=== PATIENT | female | born 1990 | race Caucasian/White ===

== ENCOUNTER 2025-01-26 09:14 | Emergency (ER) | payer OTHER, SELFPAY ==
[2025-01-26] VITALS (8 sets, daily range): BP systolic 104–127; BP diastolic 67–71; PULSE 72–98; RESP 14–22; TEMP 36.8; O2SAT 99–100; BMI 30.2
--- NOTE | 2025-01-26 09:32 | EKG_ITS ---
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
--- NOTE | 2025-01-26 09:32 | DI.RAD.S_ITS ---
PROCEDURE: XR CHEST 1V INDICATIONS: chest pain TECHNIQUE: One view of the chest was acquired. COMPARISON: None. FINDINGS: Surgical changes and devices: None. Lungs and pleura: Lungs are clear. No pleural effusions or pneumothorax. Mediastinum: Mediastinal contours appear normal. Heart size is normal. Bones and chest wall: No suspicious bony lesions. Overlying soft tissues appear unremarkable. IMPRESSION: No acute cardiopulmonary pathology. Dictated by: Tho Worley M.D. on 01/26/2025 at 10:03 Approved by: Tho Worley M.D. on 01/26/2025 at 10:04
[2025-01-26 09:47] LABS: Add Manual Diff / Slide Review NO; Basophils Absolute Auto 100 /uL (0-100); Basophils Percent Auto 0.6 % (0-2); Eosinophils Absolute Auto 100 /uL (0-450); Eosinophils Percent Auto 0.7 % (2-4); Hematocrit 40.3 % (36-46); Hemoglobin 13.8 g/dL (12.0-16.0); Lymphocytes Absolute Auto 3200 /uL (1100-4500); Mean Corpuscular HGB Conc 34.2 % (30-36); Mean Corpuscular Hemoglobin 30.5 PG (26-34); Mean Corpuscular Volume 89.1 fL (80-100); Monocytes Absolute Auto 700 /uL (0-900); Monocytes Percent Auto 7.3 % (3-14); Neutrophils Absolute Auto 5900 /uL (1500-7000); Neutrophils Percent Auto 59.4 % (50-75); Platelet Count 259 X10^3/uL (150-400); Red Blood Cell Count 4.52 X10^6/uL (4.0-5.2); Red Cell Distribution Width 12.6 % (11.6-14.8)
--- NOTE | 2025-01-26 09:51 | ED.CHESTPAIN ---
HPI - Chest Pain General Chief Complaint: Chest Pain Stated Complaint: Chest pain , Dizzy was seen at [facility] t-14 days Time Seen by Provider: 01/26/25 09:50 Source: patient and RN notes reviewed Limitations: no limitations History of Present Illness HPI narrative: Patient is a 34-year-old female history of hyperlipidemia family history of such presenting today with ongoing chest pain. She reports over last couple of weeks she has had some chest tightness that is constant. She feels a little dizzy and lightheaded. She has been fasting for Ramadan for the last few weeks she was eating at night but feels dizzy and lightheaded at times. She has not passed out. Last night she was quite upset her son was going to live with his father. She was quite tearful she vomited up quarter-size or half-dollar size amounts of bright red blood. It only happened twice. This morning she came in to be checked out for the ongoing chest discomfort and dizziness. She has no known clotting disorder no family clotting disorder, not on hormones. Related Data Allergies Allergy/AdvReac Type Severity Reaction Status Date / Time No Known Drug Allergies Allergy Verified 01/26/25 09:33 Patient History Social History Smoking Status: Former smoker Smoking Status: Former smoker tobacco type: cigarettes Exam Initial Vital Signs Initial Vital Signs: Vital Signs Temperature 98.3 F 01/26/25 09:20 Pulse Rate 82 01/26/25 09:20 Respiratory Rate 14 01/26/25 09:20 Blood Pressure 127/71 01/26/25 09:20 Pulse Oximetry 99 01/26/25 09:20 Oxygen Delivery Method Room Air 01/26/25 09:20 GENERAL: Alert pleasant well-appearing 34 year female and in [no acute] distress. HEENT: Head atraumatic,EOMI, pupils reactive, face symmetric, [moist] mucous membranes CARDIOVASCULAR: Regular rate and rhythm without murmurs, rubs or gallops. RESPIRATORY: Breath sounds equal bilaterally, no wheezes rales or rhonchi. ABDOMEN: Soft, nontender. Normoactive bowel sounds all 4 quadrants. No guarding or rebound. EXTREMITIES: Normal range of motion, no clubbing or edema. Neurovascularly intact NEUROLOGICAL: Alert and oriented x4.Normal gait and speech. Cranial nerves II through XII grossly intact. SKIN: Warm, dry, no laceration, no petechiae, no rashes or lesions. Course Orders Ordered: ED Orders 01/26/25 09:30 Complete Blood Count AUTO DIFF Stat Comprehensive Metabolic Panel Stat D Dimer Stat Lipase Stat Magnesium Stat NT-proBNP (BNP-Adult 18+) Stat PTT Partial Thromboplastin Alexis Stat Prothrombin Time INR Stat Troponin & CK Cardiac Panel Stat 01/26/25 09:32 XR chest 1V Stat EKG-12 Lead Stat Discontinued Medications Aspirin (Aspirin 81 Mg Chew Tab) 324 mg PO NOW ONE Stop: 01/26/25 09:33 Last Admin: 01/26/25 10:15 Dose: Not Given Documented By: KAZ Sodium Chloride (Normal Saline 0.9%) 1,000 mls @ 1,000 mls/hr IV BOLUS ONE Stop: 01/26/25 10:59 Last Infusion: 01/26/25 11:17 Dose: Infused Documented By: Admin: 01/26/25 10:17 Dose: 1,000 mls/hr Documented By: KAZ Vital Signs Vital signs: Vital Signs - 8 hr 01/26/25 09:20 01/26/25 09:28 01/26/25 09:30 Temperature 98.3 F Pulse Rate 82 82 98 H Respiratory Rate 14 Blood Pressure 127/71 Pulse Oximetry 99 100 100 Oxygen Delivery Method Room Air 01/26/25 10:00 01/26/25 10:21 01/26/25 10:21 Temperature Pulse Rate 83 72 Respiratory Rate 16 21 Blood Pressure 104/68 Pulse Oximetry 100 100 Oxygen Delivery Method 01/26/25 10:30 01/26/25 10:30 01/26/25 11:00 Temperature Pulse Rate 76 Respiratory Rate 20 Blood Pressure 113/69 108/67 Pulse Oximetry 100 Oxygen Delivery Method 01/26/25 11:00 01/26/25 11:28 Temperature Pulse Rate 79 81 Respiratory Rate 22 17 Blood Pressure 108/67 Pulse Oximetry 99 99 Oxygen Delivery Method Room Air MDM - Chest Pain Lab Data 01/26/25 09:30 01/26/25 09:30 Labs: Lab Results 01/26/25 Range/Units 09:30 WBC 10.0 (4.5-11.0) X10^3/uL RBC 4.52 (4.0-5.2) X10^6/uL Hgb 13.8 (12.0-16.0) g/dL Hct 40.3 (36-46) % MCV 89.1 (80-100) fL MCH 30.5 (26-34) PG MCHC 34.2 (30-36) % RDW 12.6 (11.6-14.8) % Plt Count 259 (150-400) X10^3/uL Neut % (Auto) 59.4 (50-75) % Lymph % (Auto) 32.0 (25-40) % [place] % (Auto) 7.3 (3-14) % Eos % (Auto) 0.7 L (2-4) % Baso % (Auto) 0.6 (0-2) % Neut # (Auto) 5900 (9307-2826) /uL Lymph # (Auto) 3200 (8818-9675) /uL [place] # (Auto) 700 (0-900) /uL Eos # (Auto) 100 (0-450) /uL Baso # (Auto) 100 (0-100) /uL PT 11.7 (9.4-12.5) SECONDS INR 1.0 (0.9-1.3) APTT 40 H (25.1-36.5) SECONDS D-Dimer < 215 (<500) ng/ml Sodium 137 (137-145) mmol/L Potassium 4.3 (3.4-5.1) mmol/L Chloride 107 (98-107) mmol/L Carbon Dioxide 20 L (22-32) mmol/L BUN 13 (7-17) mg/dL Creatinine 0.79 (0.52-1.04) mg/dL Estimated GFR > 60 (>60) mL/min BUN/Creatinine Ratio 16.5 (6-22) Glucose 112 H (70-100) mg/dL Calcium 9.3 (8.4-10.2) mg/dL Magnesium 1.9 (1.6-2.3) mg/dL Total Bilirubin 0.7 (0.2-1.3) mg/dL AST 32 (14-36) IU/L ALT 26 (<35) IU/L Alkaline Phosphatase 55 (38-126) U/L Total Creatine Kinase 58 (30-135) U/L Troponin I < 0.012 (0.01-0.034) ng/mL NT-Pro-B Natriuret Pep < 20 (<125) pg/mL Total Protein 8.6 H (6.3-8.2) g/dL Albumin 4.8 (3.5-5.0) g/dL Globulin 3.8 (1.7-4.1) g/dL Albumin/Globulin Ratio 1.3 (1.0-2.8) Lipase 48 (23-300) U/L Imaging Data Chest x-ray: Radiologist's Impression: PROCEDURE: XR CHEST 1V INDICATIONS: chest pain TECHNIQUE: One view of the chest was acquired. COMPARISON: None. FINDINGS: Surgical changes and devices: None. Lungs and pleura: Lungs are clear. No pleural effusions or pneumothorax. Mediastinum: Mediastinal contours appear normal. Heart size is normal. Bones and chest wall: No suspicious bony lesions. Overlying soft tissues appear unremarkable. IMPRESSION: No acute cardiopulmonary pathology. Dictated by: Tho Worley M.D. on 01/26/2025 at 10:03 ECG Data Attestation: I personally reviewed and interpreted this ECG as follows: Interpretation: Sinus rhythm rate 83 [place] interval 126 QRS [address] changes mild respiratory variant noted MDM Narrative Medical decision making narrative: MDM CC: Chest pain shortness of breath hemoptysis/hematemesis Complicating co-morbidities: Hyperlipidemia Medical records reviewed: none Differential considered: Dehydration pulmonary embolism respiratory illness pneumonia Exam documented above, pertinent findings include: Well-appearing 34-year-old female abdomen soft no obvious respiratory distress Lab Test results independently reviewed as above. Pertinent findings: WBC 10 hemoglobin 13.8 hematocrit 40.3 platelets 259 Electrolytes within normal limits creatinine 0.79 Bilirubin liver enzymes within normal limits Troponin negative BNP negative D-dimer less than 215 Independently reviewed EKG as above Sinus rhythm no ischemia Imaging studies independently reviewed: Chest x-ray no acute cardiopulmonary process Treatments: 1 L IV fluids Re-evaluations: Overall feeling better after IV fluids Discussion: Patient 34-year-old female presenting today with ongoing chest discomfort for couple of weeks. Had a small amount of hematemesis or hemoptysis last night. She is hemodynamically stable no significant anemia she has not had any further occurrence. Overall vitals and labs are reassuring. D-dimer is undetectable low suspicion for pulmonary embolism she has no evidence of pneumonia Patient feeling dizzy lightheaded blood work overall reassuring. She was agreeable to 1 L of IV fluids despite Ramadan. She was feeling better after the fluids actually. Discharge Plan Departure Patient Disposition: Home Clinical Impression: Atypical chest pain, Dehydration Instructions: DI for Dehydration -- Adult, DI for Atypical Chest Pain Activity Restrictions/Additional Instructions: *You have been diagnosed with atypical chest pain dehydrated *What to do: At this time workup in the emergency department overall reassuring. I am glad that you feel better after fluids. *Continue to take medications as directed *Follow up with your primary care provider in 2-3 days or call [phone] *Return to ER if you should have increasing dizziness passing out, vomiting/coughing cupful/handful of blood or any new, worsening or concerning symptoms Stand Alone Forms: Patient Portal/API/Survey
[2025-01-26 09:54] LABS: Prothrombin Time 11.7 SECONDS (9.4-12.5)
[2025-01-26 09:56] LABS: PTT Partial Thromboplastin Tim 40 SECONDS (25.1-36.5)
[2025-01-26 09:57] LABS: Alanine Aminotransferase 26 IU/L (<35); Albumin 4.8 g/dL (3.5-5.0); Albumin Globulin Ratio 1.3 (1.0-2.8); Alkaline Phosphatase 55 U/L (38-126); Aspartate Aminotransferase 32 IU/L (14-36); BUN Creatinine Ratio 16.5 (6-22); Bilirubin Total 0.7 mg/dL (0.2-1.3); Blood Urea Nitrogen 13 mg/dL (7-17); Calcium 9.3 mg/dL (8.4-10.2); Carbon Dioxide 20 mmol/L (22-32); Chloride 107 mmol/L (98-107); Creatine Kinase 58 U/L (30-135); Estimated Glomerular Filt Rate > 60 mL/min (>60); Globulin 3.8 g/dL (1.7-4.1); Glucose 112 mg/dL (70-100); HEMOLYSIS 43 (0-50); Lipase 48 U/L (23-300); Magnesium 1.9 mg/dL (1.6-2.3); Potassium 4.3 mmol/L (3.4-5.1); Sodium 137 mmol/L (137-145); Total Protein 8.6 g/dL (6.3-8.2)
[2025-01-26 10:09] LABS: NT-proBNP (BNP-Adult 18+) < 20 pg/mL (<125); Troponin I < 0.012 ng/mL (0.01-0.034)
[2025-01-26 10:17] LABS: D Dimer < 215 ng/ml (<500)
[2025-01-26] MEDS: SODIUM CHLORIDE 0.9% 1,000 ML 1000 ML IV (10:17)
== END 2025-01-26 11:28 | disposition home or self-care (01) ==
PROVIDERS: Emergency Provider Emergency Medicine
DX: R07.89 Other chest pain (principal); E86.0 Dehydration; R04.2 Hemoptysis; R42 Dizziness and giddiness; R06.02 Shortness of breath
CPT/HCPCS: 36415; 71045; 80053; 82550; 83690; 83735; 83880; 84484; 85025; 85379; 85610; 85730; 93005; 96360; 99284

== ENCOUNTER → 2025-10-05 16:46 | Outpatient (CLI) | payer OTHER, SELFPAY ==
[2025-10-05 18:28] LABS: Urine N gonorrhoeae NOT DETECTED
[2025-10-05 18:39] LABS: Urine Chlamydia NOT DETECTED
== END ==
PROVIDERS: Visit Provider Physician Assistant
DX: Z11.3 Encounter for screening for infections with a predominantly sexual mode of transmission (principal); N89.8 Other specified noninflammatory disorders of vagina
CPT/HCPCS: 87210; 87491; 87591